=== PATIENT | male | born 1960 | race Caucasian/White ===

== ENCOUNTER 2020-03-02 04:23 | Emergency (ER) | payer OTHER ==
[~2020-03-02] VITALS: Ht 182.9 cm; Wt 113.3 kg
[2020-03-02 05:26] LABS: BASOPHILS % (AUTO) 1 % (0-1); EOSINOPHILS % (AUTO) 4 % (1-7); LYMPHOCYTES % (AUTO) 12 % (22-44); MEAN CORPUSCULAR HEMOGLOBIN 34.8 pg (27.5-34.5); MEAN CORPUSCULAR HGB CONC 34.2 g/dL (33.2-36.2); MEAN PLATELET VOLUME 7.6 fL (7.4-10.4); MONOCYTES % (AUTO) 9 % (2-9); NEUTROPHILS % (AUTO) 75 % (42-75); PLATELET COUNT 290 x10^3/uL (130-400); RED BLOOD COUNT 3.42 x10^6/uL (4.38-5.82); RED CELL DISTRIBUTION WIDTH 13.4 % (9.4-14.8)
[2020-03-02] MEDS ORDERED: SODIUM CHLORIDE FLUSH 10ML SYR IVF ONE (05:30)
[2020-03-02 05:38] LABS: ALANINE AMINOTRANSFERASE 23 U/L (12-78); ALBUMIN 3.4 g/dL (3.4-5.0); ANION GAP 6 mmol/L (5-15); CALCIUM 8.7 mg/dL (8.5-10.1); CHLORIDE 103 mmol/L (98-107)
[2020-03-02 05:41] LABS: ALKALINE PHOSPHATASE 98 U/L (45-117); BILIRUBIN,TOTAL 1.9 mg/dL (0.2-1.0); TOTAL PROTEIN 7.2 g/dL (6.4-8.2)
[2020-03-02 05:42] LABS: INTERNATIONAL NORMALIZED RATIO 0.95 (0.93-1.1); PROTHROMBIN TIME 10.1 Seconds (9.6-11.5)
[2020-03-02] MEDS ORDERED: OMNIPAQUE 350 MG/ML, 150 ML BOTTLE ONE (06:09)
[2020-03-02 06:21] LABS: MD SCAN
--- NOTE | 2020-03-02 07:22 | NUR ---
Delayed note d/t pt care. A&o x4, answering questions appropriately. Pt states he had mechanical trip/fall with subsequent L sided rib fx on 02/20. Pt was admitted to [facility] where he had a thoracentesis. Pt states worsening ecchymosis/edema to L flank area x2 days. Denies worsening pain. States continued, unchanged SOB. States he has been using incentive spirometer frequently. Speaking in clear, full sentences. No s/sx acute respiratory distress. No use of accessory muscles noted. Remains on continuous tele/O2 monitoring. NSR noted. O2 > 95% RA.
[2020-03-02 07:24] VITALS: BP 128/85
--- NOTE | 2020-03-02 08:08 | NUR ---
Patient given discharge instructions and they have confirmed that they understand the instructions. Patient ambulatory with steady gait.
== END 2020-03-02 08:09 | disposition home or self-care (01) ==
LOC: ED 05:43
DX: S22.32XA Fracture of one rib, left side, initial encounter for closed fracture (principal); S30.1XXA Contusion of abdominal wall, initial encounter; I71.4 Abdominal aortic aneurysm, without rupture; R91.1 Solitary pulmonary nodule; I10 Essential (primary) hypertension; J44.9 Chronic obstructive pulmonary disease, unspecified; X58.XXXA Exposure to other specified factors, initial encounter; Y93.89 Activity, other specified; Y92.89 Other specified places as the place of occurrence of the external cause; Y99.8 Other external cause status
CPT/HCPCS: 36415; 74022; 74177; 80053; 85025; 85610; 85730; 99285; Q9967

== ENCOUNTER → 2020-05-25 | Outpatient (CLI) | payer OTHER ==
[~2020-05-25] MED LIST: AMLO-211 PO; HYDROCHLOROTH12.5 MG PO; LEVO25TA4 PO; LOSA25TA25 PO
[2020-05-25 09:57] LABS: BASOPHILS % (AUTO) 1 % (0-1); EOSINOPHILS % (AUTO) 5 % (1-7); LYMPHOCYTES % (AUTO) 18 % (22-44); MEAN CORPUSCULAR HEMOGLOBIN 32.4 pg (27.5-34.5); MEAN CORPUSCULAR HGB CONC 33.9 g/dL (33.2-36.2); MEAN PLATELET VOLUME 9.1 fL (7.4-10.4); MONOCYTES % (AUTO) 8 % (2-9); NEUTROPHILS % (AUTO) 69 % (42-75); PLATELET COUNT 203 x10^3/uL (130-400); RED CELL DISTRIBUTION WIDTH 15.4 % (9.4-14.8)
[2020-05-25 09:59] LABS: ALANINE AMINOTRANSFERASE 22 U/L (12-78); ALBUMIN 3.5 g/dL (3.4-5.0); ANION GAP 4 mmol/L (5-15); CALCIUM 9.3 mg/dL (8.5-10.1); CHLORIDE 107 mmol/L (98-107); MD NO
[2020-05-25 10:02] LABS: ALKALINE PHOSPHATASE 104 U/L (45-117); BILIRUBIN,TOTAL 1.1 mg/dL (0.2-1.0); CREATININE 1.07 mg/dL (0.7-1.3); TOTAL PROTEIN 7.4 g/dL (6.4-8.2)
== END | disposition home or self-care (01) ==
LOC: STAR 07:34
PROVIDERS: ATTEND Surgery Vascular Surgery
DX: Z01.818 Encounter for other preprocedural examination (principal); Z20.822 Contact with and (suspected) exposure to COVID-19
CPT/HCPCS: 80053; 85025; 87635; 93005

== ENCOUNTER 2020-05-31 06:03 | Inpatient (IN) | payer OTHER ==
[~2020-05-31] VITALS: Ht 182.9 cm; Wt 117.6 kg
[2020-05-31] MEDS ORDERED: HEPARIN 1,000 UNITS/ML, 10ML ONE (06:46)
[2020-05-31] MEDS ORDERED: BUPIVACAINE/PF 0.5% ONE (06:46)
[2020-05-31] MEDS ORDERED: THROMBIN 20,000 UNIT VIAL TP ONE (06:46)
[2020-05-31] MEDS ORDERED: EPINEPHRINE 1 MG/ML, 1ML ONE (06:46)
[2020-05-31] MEDS ORDERED: PROTAMINE SULFATE 10 MG/ML, 5ML ONE (06:46)
[2020-05-31] MEDS ORDERED: BACITRACIN 50,000 UNIT ONE (06:47)
[2020-05-31] MEDS ORDERED: LACTATED RINGERS 1,000 ML IV SCH (07:00)
[2020-05-31] MEDS ORDERED: CHLORHEXIDINE 15 ML UDC MM ONE (07:00)
[2020-05-31] MEDS ORDERED: PROPOFOL 50 ML ONE (07:10)
[2020-05-31] MEDS ORDERED: MIDAZOLAM 1 MG/ML, 2ML ONE (07:10)
[2020-05-31] MEDS ORDERED: FENTANYL PF 250 MCG/5ML ONE (07:10)
[2020-05-31] MEDS ORDERED: ONDANSETRON 2MG/ML, 2ML ONE (07:36)
[2020-05-31] MEDS ORDERED: PROPOFOL 10 MG/ML, 20ML ONE (07:36)
[2020-05-31] MEDS ORDERED: ROCURONIUM 10 MG/ML,10ML ONE (07:36)
[2020-05-31] MEDS ORDERED: DEXAMETHASONE 4 MG/ML, 1ML ONE (07:36)
[2020-05-31] MEDS ORDERED: SUCCINYLCHOLINE 20 MG/ML, 10ML ONE (07:36)
[2020-05-31] MEDS ORDERED: CEFAZOLIN 1,000 MG ONE (07:36)
[2020-05-31] MEDS ORDERED: PROPOFOL 10 MG/ML, 50ML ONE (07:36)
[2020-05-31] MEDS ORDERED: HEPARIN 1,000 UNITS/ML, 10ML IV ONE (08:01)
[2020-05-31] MEDS ORDERED: BUPIVACAINE/PF-EPI 0.5% 1:200K INFIL ONE (08:01)
[2020-05-31] MEDS ORDERED: ALBUTEROL/IPRATROPIUM 2.5MG/0.5MG, 3 ML NPPB PRN (08:30)
[2020-05-31] MEDS ORDERED: OXYcodone 5 MG/5 ML ORAL.SOL UDC PO PRN (08:30)
[2020-05-31] MEDS ORDERED: DIAZEPAM 5 MG/ML, 2ML IVPush PRN (08:30)
[2020-05-31] MEDS ORDERED: EPHEDRINE 50 MG/ML, 1ML IM PRN (08:30)
[2020-05-31] MEDS ORDERED: FENTANYL PF 100 MCG/2ML IV PRN (08:30)
[2020-05-31] MEDS ORDERED: morphine SULFATE 10 MG/ML, 1ML IVPush PRN (08:30)
[2020-05-31] MEDS ORDERED: PROMETHAZINE 25 MG/ML, 1ML IVPush PRN (08:30)
[2020-05-31] MEDS ORDERED: ACETAMINOPHEN 325 MG TABLET PO PRN (08:30)
[2020-05-31] MEDS ORDERED: ONDANSETRON 2MG/ML, 2ML IVPush PRN (08:30)
[2020-05-31] MEDS ORDERED: METOPROLOL 1 MG/ML, 5ML IV PRN (08:30)
[2020-05-31] MEDS ORDERED: EPHEDRINE 50 MG/ML, 1ML IVPush PRN (08:30)
[2020-05-31] MEDS ORDERED: DIPHENHYDRAMINE 50 MG/ML, 1ML IVPush PRN (08:30)
[2020-05-31] MEDS ORDERED: MEPERIDINE/PF 25MG/0.5ML IVPush PRN (08:30)
[2020-05-31] MEDS ORDERED: VISIPAQUE 270 MG/ML, 150ML BOTTLE ONE (08:55)
[2020-05-31] MEDS ORDERED: VISIPAQUE 270 MG/ML, 50ML BOTTLE ONE (08:55)
[2020-05-31] MEDS ORDERED: HYDR-1067 PO (09:19)
[2020-05-31 10:30] VITALS: BP 136/89
[2020-05-31] MEDS ORDERED: HYDROcodone/APAP 5/325 TABLET PO PRN (11:00)
[2020-05-31] MEDS ORDERED: morphine SULFATE 10 MG/ML, 1ML IV PRN (11:00)
[2020-05-31] MEDS ORDERED: ONDANSETRON 2MG/ML, 2ML IV PRN (11:00)
[2020-05-31] MEDS: POTASSIUM CHLORIDE 20 MEQ in D5%-0.45% NACL 1,000 ML IV SCH (11:47)
[2020-05-31 13:17] VITALS: BP 135/89
[2020-05-31 13:30] VITALS: BP 141/93
[2020-05-31] MEDS: LOSARTAN 25MG TABLET PO SCH (14:57)
[2020-05-31] MEDS: HYDROCHLOROTHIAZIDE 12.5 MG CAPSULE PO SCH (14:57)
[2020-05-31 20:05] VITALS: BP 129/83
[2020-06-01 00:29] VITALS: BP 137/85
[2020-06-01 04:18] VITALS: BP 122/79
[2020-06-01] MEDS: POTASSIUM CHLORIDE 20 MEQ in D5%-0.45% NACL 1,000 ML IV SCH (04:29)
[2020-06-01 05:17] LABS: BASOPHILS % (AUTO) 0 % (0-1); EOSINOPHILS % (AUTO) 1 % (1-7); LYMPHOCYTES % (AUTO) 12 % (22-44); MEAN CORPUSCULAR HEMOGLOBIN 31.8 pg (27.5-34.5); MEAN CORPUSCULAR HGB CONC 33.4 g/dL (33.2-36.2); MEAN PLATELET VOLUME 8.1 fL (7.4-10.4); MONOCYTES % (AUTO) 7 % (2-9); NEUTROPHILS % (AUTO) 81 % (42-75); PLATELET COUNT 199 x10^3/uL (130-400); RED BLOOD COUNT 4.62 x10^6/uL (4.38-5.82); RED CELL DISTRIBUTION WIDTH 14.7 % (9.4-14.8)
[2020-06-01 05:21] LABS: MD NO
[2020-06-01 05:28] LABS: ANION GAP 4 mmol/L (5-15); CALCIUM 8.6 mg/dL (8.5-10.1); CHLORIDE 107 mmol/L (98-107)
[2020-06-01 05:30] LABS: CREATININE 0.88 mg/dL (0.7-1.3)
[2020-06-01] MEDS ORDERED: LEVOTHYROXINE 25 MCG TABLET PO SCH (06:00)
[2020-06-01 07:57] VITALS: BP 126/81
[2020-06-01] MEDS: HYDROCHLOROTHIAZIDE 12.5 MG CAPSULE PO SCH (08:47)
[2020-06-01] MEDS: LOSARTAN 25MG TABLET PO SCH (08:47)
[2020-06-01] MEDS ORDERED: AMLODIPINE 10 MG TAB PO SCH (09:00)
[2020-06-01 09:30] VITALS: BP 136/82
== END 2020-06-01 10:30 | disposition home or self-care (01) | DRG 269 ==
LOC: ORIP 06:03 → EDSTATUS 07:30 → 4NE 10:27 → DCLOUNGE 06-01 10:15
PROVIDERS: ADMIT Family Medicine; ATTEND Surgery Vascular Surgery
PROC: B4101ZZ Fluoroscopy of Abdominal Aorta using Low Osmolar Contrast (ICD-10-PCS; 2020-05-31)
PROC: 04V03DZ Restriction of Abdominal Aorta with Intraluminal Device, Percutaneous Approach (ICD-10-PCS; principal; 2020-05-31 07:30)
DX: I71.4 Abdominal aortic aneurysm, without rupture (principal)
CPT/HCPCS: 36415; S0020; 34705; 34812; 80048; 85025; 86850; 86900; G0378; J0171; J0690; J1100; J1644; J2250; J2405; J2704; J2720; J3010; J3480; Q9966; C1768; C1769; C1894; J0330; J7120